=== PATIENT | female | born 1985 | race Caucasian/White ===

== ENCOUNTER → 2018-10-10 08:56 | Outpatient (CLI) | payer OTHER, MEDICAID, SELFPAY ==
[2018-10-13 12:33] LABS: Mitogen-NIL 9.79 IU/mL; NIL 0.05 IU/mL; QuantiFERON TB NEGATIVE (Negative); TB1-NIL < 0.01 IU/mL; TB2-NIL < 0.01 IU/mL
== END ==
PROVIDERS: Visit Provider Family Medicine
DX: Z11.1 Encounter for screening for respiratory tuberculosis (principal)
CPT/HCPCS: 36415; 86480

== ENCOUNTER 2019-08-19 18:11 | Emergency (ER) | payer OTHER, MEDICAID, SELFPAY ==
[2019-08-19 18:16] VITALS: BP 100/69; PULSE 86; RESP 16; TEMP 36.8; O2SAT 91
[2019-08-19] MEDS: ONDANSETRON 4 MG/2 ML INJ IV (19:53)
[2019-08-19] MEDS: SODIUM CHLORIDE 0.9% 1,000 ML 1000 ML IV (19:54)
[2019-08-19 19:56] LABS: Add Manual Diff / Slide Review NO; Basophils Absolute Auto 0 /uL (0-100); Basophils Percent Auto 0.2 % (0-2); Eosinophils Absolute Auto 0 /uL (0-450); Eosinophils Percent Auto 0.4 % (2-4); Hematocrit 40.2 % (36-46); Hemoglobin 13.9 g/dL (12.0-16.0); Lymphocytes Absolute Auto 2300 /uL (1100-4500); Mean Corpuscular HGB Conc 34.5 % (30-36); Mean Corpuscular Hemoglobin 31.6 PG (26-34); Mean Corpuscular Volume 91.5 fL (80-100); Monocytes Absolute Auto 500 /uL (0-900); Monocytes Percent Auto 6.3 % (3-14); Neutrophils Absolute Auto 5200 /uL (1500-7000); Neutrophils Percent Auto 64.1 % (50-75); Platelet Count 275 X10^3/uL (150-400); Red Cell Distribution Width 12.1 % (11.6-14.8); White Blood Cell Count 8.1 X10^3/uL (4.5-11.0)
[2019-08-19 20:07] LABS: Alanine Aminotransferase 34 IU/L (<35); Albumin 4.9 g/dL (3.5-5.0); Albumin Globulin Ratio 1.3 (1.0-2.8); Alkaline Phosphatase 54 U/L (38-126); Aspartate Aminotransferase 29 IU/L (14-36); Bilirubin Total 0.7 mg/dL (0.2-1.3); Blood Urea Nitrogen 10 mg/dL (7-17); Calcium 9.8 mg/dL (8.4-10.2); Carbon Dioxide 22 mmol/L (22-32); Chloride 100 mmol/L (98-107); Estimated Glomerular Filt Rate > 60.0 mL/min (>60); Globulin 3.7 g/dL (1.7-4.1); Glucose 88 mg/dL (70-100); HEMOLYSIS < 15 (0-50); Lipase 92 U/L (23-300); Potassium 3.8 mmol/L (3.4-5.1); Sodium 135 mmol/L (137-145); Total Protein 8.6 g/dL (6.3-8.2)
--- NOTE | 2019-08-19 20:31 | ED_ITS ---
HPI - Nausea/Vomiting/Diarrhea <MAXIM Padilla - Last Filed: 08/19/19 22:15> General Chief complaint: Nausea/Vomiting/Diarrhea Stated complaint: 6 WKS SICKNESS Time Seen by Provider: 08/19/19 19:35 Source: patient Mode of arrival: Ambulatory Limitations: no limitations History of Present Illness HPI Narrative: This is a , currently about 8 week female, nonsmok er, who presents to ED with family with chief complain of nausea and vomiting. Patient reports she had home test with positive results about 2 weeks ago and has been feeling sick with nausea but worse during last a couple of days and was unable to tolerate fluids or solid foods. She had about 3-6 times of emesis per day last couple of days. She reports feeling constantly nauseated. Patient denies abdominal discomfort but mild cramping with excessive vomiting only. Patient denies vaginal bleeding or pelvic discomfort. Patient denies significant weight loss, chest pain, breathing difficulty, lightheadedness, headache. Patient denies urinary symptoms, fever, chills, blood in her emesis or stool. Patient states with her 1st she was some a excessively nauseated during first-trimester but had use Unisom and vitamin B6 which helped her with her symptoms. According to patient, patient's mother had hyperemesis gravidarum. Related Data Previous Rx's Medication Instructions Recorded sertraline [Zoloft] 100 mg PO QDAY #30 tab 06/07/17 ondansetron 4 mg PO TID-QID PRN #14 tab 08/19/19 Allergies Allergy/AdvReac Type Severity Reaction Status Date / Time Penicillins [PENICILLINS] Allergy Unknown Verified 08/19/19 20:02 Review of Systems <MAXIM Padilla - Last Filed: 08/19/19 22:15> Review of Systems Narrative: General: Denies fever, chills, fatigue, malaise, sweats. HEENT: Denies sinus pain, ear pain, sore throat, difficulty swallowing, dizziness. Respiratory: Denies dyspnea, cough, wheezing, hemoptysis, sputum. Cardiovascular: Denies chest pain, palpitations, orthopnea, edema. Gastrointestinal: See HPI : Denies dysuria, frequency, incontinence, hematuria, urinary retention. Musculoskeletal: Denies weakness, joint pain or bony pain. Skin: Denies rash, skin lesions, or other. Neurologic: Denies weakness, headache, numbness, change in speech, confusion, seizures, incoordination. Psychiatric: No concerning psychosocial issues. 12-point review of systems is negative except for those stated above. Patient History <MAXIM Padilla - Last Filed: 08/19/19 22:15> Medical History (Updated 08/19/19 @ 21:36 by MAXIM Padilla) Depression (Acute) Social History Smoking Status: Never smoker Smoking Status: Never smoker alcohol intake frequency: holidays/special occasions only (But not currently during ) Substance Use Type: does not use Exam <MAXIM Padilla - Last Filed: 08/19/19 22:15> Narrative Exam Narrative: GEN: Alert, oriented x 3, well appearing and nourished, and in no acute distress. Head: Normal cephalic, atraumatic. No scalp or temporal tenderness, palpable mass or rash. EYES: Pupils are equal, round, and reactive to light and accommodation. Extraocular muscles are intact bilaterally. There is no subconjunctival hemorrhage, exudate and sclera non-icteric. ENT: Bilateral auditory canals and tympanic membranes clear. Hearing grossly intact. Nose without bleeding, purulent discharge or deviation. Facial sinuses nontender to palpate. Mucous membrane moist, no mucosal lesion. Throat without erythema, tonsillar hypertrophy or exudate. Uvula in midline, airway patent. Neck: Trachea in midline. No JVD, non-tender without lymphadenopathy. No masses or thyroid megaly. Supple, non-tender and no meningeal signs. CARDIAC: Normal regular rate and rhythm without murmurs, gallops, or rubs. No chest wall tenderness. No peripheral edema, cyanosis or pallor. Capillary refill is less than 2 seconds. RESPIRATORY: Lungs are clear to auscultate bilaterally. No cough, wheezes, rales, or rhonchi. No stridor, respiratory distress, increase work of breathing, or accessary muscle used. ABD: Abdomen soft, nontender and non-distended. No guarding or rebound tenderness to palpate. Bowel sounds are normal in all 4 quadrants. There is no palpable masses or organomegaly. EXT: Full painless ROM of all extremities with no loss of sensation, strength, effusion or edema. SKIN: Warm, dry, normal color for patient. No erythema, lesions or rash over visible areas. BACK: Nontender without deformity or crepitance. No flank tenderness. NEUROLOGICAL: Alert and oriented to place, time and person. Sensation and motor function intact bilaterally. No facial droops, dysphasia. PSYCHIATRIC: Good judgement and reason, without hallucinations, abnormal affect or abnormal behaviors during the examination. Patient is not suicidal. Initial Vital Signs Initial Vital Signs: Vital Signs Temperature 98.2 F 08/19/19 18:16 Pulse Rate 86 08/19/19 18:16 Respiratory Rate 16 08/19/19 18:16 Blood Pressure 100/69 08/19/19 18:16 Pulse Oximetry 91 08/19/19 18:16 <Ayo Perrin DO - Last Filed: 08/19/19 22:20> Initial Vital Signs Initial Vital Signs: Vital Signs Temperature 98.2 F 08/19/19 18:16 Pulse Rate 86 08/19/19 18:16 Respiratory Rate 16 08/19/19 18:16 Blood Pressure 100/69 08/19/19 18:16 Pulse Oximetry 91 08/19/19 18:16 Scores <MAXIM Padilla - Last Filed: 08/19/19 22:15> GCS [place] coma scale eye opening: Spontaneous [place] coma scale verbal response: Orientated [place] coma scale motor response: Obey commands [place] coma scale total score: 15 Course <MAXIM Padilla - Last Filed: 08/19/19 22:15> Orders Ordered: ED Orders 08/19/19 19:50 Complete Blood Count AUTO DIFF Stat Comprehensive Metabolic Panel Stat HCG Quantitative /Beta subunit Stat Lipase Stat 08/19/19 21:45 Urinalysis and Microscopic Stat Discontinued Medications Sodium Chloride (Normal Saline 0.9%) 1,000 mls @ 1,000 mls/hr IV BOLUS ONE Stop: 08/19/19 20:35 Last Infusion: 08/19/19 21:15 Dose: 0 mls/hr Documented by: Admin: 08/19/19 19:54 Dose: 1,000 mls/hr Documented by: DANGELO Ondansetron HCl (Zofran) 4 mg IV NOW ONE Stop: 08/19/19 19:36 Last Admin: 08/19/19 19:53 Dose: 4 mg Documented by: DANGELO Ondansetron HCl (Zofran Odt Prepack) 1 bottle MISC SEEINSTR ONE Stop: 08/19/19 21:31 Last Admin: 08/19/19 21:41 Dose: 1 bottle Documented by: DANGELO Vital Signs Vital signs: Vital Signs - 8 hr 08/19/19 18:16 08/19/19 21:52 Temperature 98.2 F Pulse Rate 86 87 Respiratory Rate 16 Blood Pressure 100/69 Blood Pressure [Right Arm] 94/62 Pulse Oximetry 91 <Ayo Perrin DO - Last Filed: 08/19/19 22:20> Orders Ordered: ED Orders 08/19/19 19:50 Complete Blood Count AUTO DIFF Stat Comprehensive Metabolic Panel Stat HCG Quantitative /Beta subunit Stat Lipase Stat 08/19/19 21:45 Urinalysis and Microscopic Stat Discontinued Medications Sodium Chloride (Normal Saline 0.9%) 1,000 mls @ 1,000 mls/hr IV BOLUS ONE Stop: 08/19/19 20:35 Last Infusion: 08/19/19 21:15 Dose: 0 mls/hr Documented by: Admin: 08/19/19 19:54 Dose: 1,000 mls/hr Documented by: DANGELO Ondansetron HCl (Zofran) 4 mg IV NOW ONE Stop: 08/19/19 19:36 Last Admin: 08/19/19 19:53 Dose: 4 mg Documented by: DANGELO Ondansetron HCl (Zofran Odt Prepack) 1 bottle MISC SEEINSTR ONE Stop: 08/19/19 21:31 Last Admin: 08/19/19 21:41 Dose: 1 bottle Documented by: DANGELO Vital Signs Vital signs: Vital Signs - 8 hr 08/19/19 18:16 08/19/19 21:52 Temperature 98.2 F Pulse Rate 86 87 Respiratory Rate 16 Blood Pressure 100/69 Blood Pressure [Right Arm] 94/62 Pulse Oximetry 91 MDM - Nausea/Vomiting/Diarrhea <Jovanni MAXIM Lovell - Last Filed: 08/19/19 22:15> Differential Diagnosis Differential diagnosis: Likely gastroenteritis and other (morning sickness, hyperemesis gravidarum) Medical Records Attestation: I reviewed the patient's medical records. Lab Data Attestation: I reviewed the patient's lab results. Result diagrams: 08/19/19 19:50 08/19/19 19:50 Labs: Lab Results 08/19/19 08/19/19 08/19/19 Range/Units 19:50 19:50 21:45 WBC 8.1 (4.5-11.0) X10^3/uL RBC 4.40 (4.0-5.2) X10^6/uL Hgb 13.9 (12.0-16.0) g/dL Hct 40.2 (36-46) % MCV 91.5 (80-100) fL MCH 31.6 (26-34) PG MCHC 34.5 (30-36) % RDW 12.1 (11.6-14.8) % Plt Count 275 (150-400) X10^3/uL Neut % (Auto) 64.1 (50-75) % Lymph % (Auto) 29.0 (25-40) % [place] % (Auto) 6.3 (3-14) % Eos % (Auto) 0.4 L (2-4) % Baso % (Auto) 0.2 (0-2) % Neut # (Auto) 5200 (2344-2381) /uL Lymph # (Auto) 2300 (9498-1354) /uL [place] # (Auto) 500 (0-900) /uL Eos # (Auto) 0 (0-450) /uL Baso # (Auto) 0 (0-100) /uL Sodium 135 L (137-145) mmol/L Potassium 3.8 (3.4-5.1) mmol/L Chloride 100 (98-107) mmol/L Carbon Dioxide 22 (22-32) mmol/L BUN 10 (7-17) mg/dL Creatinine 0.50 L (0.52-1.04) mg/dL Estimated GFR > 60.0 (>60) mL/min BUN/Creatinine Ratio 20.0 (6-22) Glucose 88 (70-100) mg/dL Calcium 9.8 (8.4-10.2) mg/dL Total Bilirubin 0.7 (0.2-1.3) mg/dL AST 29 (14-36) IU/L ALT 34 (<35) IU/L Alkaline Phosphatase 54 (38-126) U/L Total Protein 8.6 H (6.3-8.2) g/dL Albumin 4.9 (3.5-5.0) g/dL Globulin 3.7 (1.7-4.1) g/dL Albumin/Globulin Ratio 1.3 (1.0-2.8) Lipase 92 (23-300) U/L HCG, Quant 14922 mIU/mL Urine Color Yellow Urine Appearance Sl cloudy Urine pH 6.5 (4.5-8.0) Ur Specific Red [place] 1.025 (1.000-1.035) Urine Protein 1+ H (Negative) Urine Glucose (UA) Negative (Negative) g/dL Urine Ketones 3+ H (NEGATIVE) Urine Occult Blood Trace-lysed (Negative) Urine Nitrate Negative (Negative) Urine Bilirubin Negative (NEGATIVE) Urine Urobilinogen 1.0 (0.2) E.U./dL Ur Leukocyte Esterase 1+ H (NEGATIVE) Urine RBC 0-1/hpf (0-5/HPF) Urine WBC 1-5/hpf (0-5/HPF) Ur Squamous Epith Cells 5-10 /hpf H (0-5/HPF) Urine Bacteria Many (>30) H (None) Urine Mucus 2+ H (Negative) Ur Culture Indicated? Cult not indicated MDM Narrative Medical decision making narrative: This is a with LMP 06/23/2019 and about 8 week female presents to ED with nausea and vomiting for 2 weeks with worsening symptoms for last 2 days. Today's lab test for CBC, lipase and chemistry were unremarkable. Normal BUN and BUN creatinine ratio today. Patient did not endorses abdominal discomfort, vaginal bleeding, pelvic discomfort. Patient was not symptomatic for chest pain, breathing difficulty, dizziness. Patient did not have complication during 1st except moderate nausea and vomiting which resolved after 1st trimester. Patient was hydrated with normal saline 1 L and medicated with Zofran which helped her symptoms. She was able to tolerate fluids and ice chips prior discharged to home. Patient was referred to ED to rule out molar . Patient's hCG is within normal limits for 8 weeks [id number]. Patient had not had 1st OB appointment as of yet and is planning to follow-up with Dr. Thomas office for her care. UA showed 3+ ketones which is consistent with patient's HPI and 1+ leuk esterase, urine squamous epithelia cells and bacteria along mucus. Patient is was not treated with antibiotic medication at this time but urine culture has been ordered. Patient was informed that she will receive phone call if antibiotic medication treatment is needed. Patient verbalized understanding and agrees with treatment plan after reviewing return precautions. <Ayo Perrin, - Last Filed: 08/19/19 22:20> Lab Data Labs: Lab Results 08/19/19 08/19/19 08/19/19 Range/Units 19:50 19:50 21:45 WBC 8.1 (4.5-11.0) X10^3/uL RBC 4.40 (4.0-5.2) X10^6/uL Hgb 13.9 (12.0-16.0) g/dL Hct 40.2 (36-46) % MCV 91.5 (80-100) fL MCH 31.6 (26-34) PG MCHC 34.5 (30-36) % RDW 12.1 (11.6-14.8) % Plt Count 275 (150-400) X10^3/uL Neut % (Auto) 64.1 (50-75) % Lymph % (Auto) 29.0 (25-40) % [place] % (Auto) 6.3 (3-14) % Eos % (Auto) 0.4 L (2-4) % Baso % (Auto) 0.2 (0-2) % Neut # (Auto) 5200 (8124-3111) /uL Lymph # (Auto) 2300 (0693-8398) /uL [place] # (Auto) 500 (0-900) /uL Eos # (Auto) 0 (0-450) /uL Baso # (Auto) 0 (0-100) /uL Sodium 135 L (137-145) mmol/L Potassium 3.8 (3.4-5.1) mmol/L Chloride 100 (98-107) mmol/L Carbon Dioxide 22 (22-32) mmol/L BUN 10 (7-17) mg/dL Creatinine 0.50 L (0.52-1.04) mg/dL Estimated GFR > 60.0 (>60) mL/min BUN/Creatinine Ratio 20.0 (6-22) Glucose 88 (70-100) mg/dL Calcium 9.8 (8.4-10.2) mg/dL Total Bilirubin 0.7 (0.2-1.3) mg/dL AST 29 (14-36) IU/L ALT 34 (<35) IU/L Alkaline Phosphatase 54 (38-126) U/L Total Protein 8.6 H (6.3-8.2) g/dL Albumin 4.9 (3.5-5.0) g/dL Globulin 3.7 (1.7-4.1) g/dL Albumin/Globulin Ratio 1.3 (1.0-2.8) Lipase 92 (23-300) U/L HCG, Quant 13285 mIU/mL Urine Color Yellow Urine Appearance Sl cloudy Urine pH 6.5 (4.5-8.0) Ur Specific Red [place] 1.025 (1.000-1.035) Urine Protein 1+ H (Negative) Urine Glucose (UA) Negative (Negative) g/dL Urine Ketones 3+ H (NEGATIVE) Urine Occult Blood Trace-lysed (Negative) Urine Nitrate Negative (Negative) Urine Bilirubin Negative (NEGATIVE) Urine Urobilinogen 1.0 (0.2) E.U./dL Ur Leukocyte Esterase 1+ H (NEGATIVE) Urine RBC 0-1/hpf (0-5/HPF) Urine WBC 1-5/hpf (0-5/HPF) Ur Squamous Epith Cells 5-10 /hpf H (0-5/HPF) Urine Bacteria Many (>30) H (None) Urine Mucus 2+ H (Negative) Ur Culture Indicated? Cult not indicated Discharge Plan Departure Patient Disposition: Home Clinical Impression: Nausea and vomiting during prior to 22 weeks gestation Discharge Date/Time: 08/19/19 22:19 Instructions: DI for Hyperemesis Gravidarum Activity Restrictions/Additional Instructions: You have been diagnosed with [nausea and vomiting during first-trimester . Complete blood count and chemistry appears to be unremarkable. 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 Urine test does not show obvious infection and it is pending for culture. You're receive a phone call if you need antibiotic medication treatment from us. Pelvic ultrasound test was deferred today since he did not have any vaginal bleeding, pelvic pain, normal HCG test level. You were hydrated with normal saline 1 L and medicated with Zofran which improved her symptoms. You're able to tolerate ice chips and small sips of fluids before discharged to home.]. What to do: *Take your medications as directed. You were provided prepack on Zofran tonight. You can use this medication 3 to 4 times a day as needed for nausea and vomiting. When you're nausea improves, you can hydrate with ice chips, clear liquids and advanced it to crackers and bland diet. *Follow up with your primary care provider in 2-3 days, call for an appointment. I have included Dr. Delgado office contact number in the discharge instruction. Let them know you were seen in the ED and that we asked you to be seen in follow up. *Return to ED if you have any new, worsening, or concerning symptoms, such as [chest pain, breathing difficulty, unable to tolerate fluids, abdominal pain, vaginal bleeding, feeling like fainting, or any acute concerns]. Prescriptions: New ondansetron 4 mg tablet,disintegrating 4 mg PO TID-QID PRN (Reason: nausea and vomiting) Qty: 14 RF: 0 No Action sertraline [Zoloft] 100 MG tablet 100 mg PO QDAY Qty: 30 RF: 1 Referrals: Ayo Lal [Non-Staff] - Gagan Thomas MD [Primary Care Provider] - <Ayo Perrin, DO - Last Filed: 08/19/19 22:20> Sign Out Provider Sign Out Attestation: Dr Perrin Co-Sign Statement: I was available for consultation during this patient's emergency department visit. This chart is signed by myself for administrative purposes only. I did not have direct con tact with this patient during this visit. They were seen independently by the APC.
[2019-08-19 20:48] LABS: HCG Quantitative /Beta subunit 52712 mIU/mL
[2019-08-19] MEDS: ONDANSETRON 4 MG ODT PREPACK 1 BOTTLE MISC (21:41)
[2019-08-19 21:52] VITALS: BP 94/62; PULSE 87
[2019-08-19 21:54] LABS: Appearance Urine UA SL CLOUDY; Bilirubin Urine UA NEGATIVE (NEGATIVE); Color Urine UA YELLOW; Glucose Urine UA NEGATIVE (Negative); Ketones Urine UA 3+ (NEGATIVE); Leukocyte Esterase Urine UA 1+ (NEGATIVE); Nitrite Urine UA NEGATIVE (Negative); Occult Blood Urine UA TRACE-LYSED (Negative); Protein Urine UA 1+ (Negative); Specific Gravity Urine UA 1.025 (1.000-1.035)
[2019-08-19 22:08] LABS: pH Urine UA 6.5 (4.5-8.0)
[2019-08-19 22:09] LABS: RBC Urine 0-1/HPF (0-5/HPF)
[2019-08-19 22:10] LABS: Bacteria Urine Many (>30); Culture Indicated Urine Cult Not Indicated; Mucus Urine 2+ (Negative); Squamous Epithelial Cell Urine 5-10 /HPF (0-5/HPF); WBC Urine 1-5/HPF (0-5/HPF)
== END 2019-08-19 22:19 | disposition home or self-care (01) ==
PROVIDERS: Emergency Provider Nurse Practitioner Family
DX: O21.9 Vomiting of pregnancy, unspecified (principal); Z3A.08 8 weeks gestation of pregnancy
CPT/HCPCS: 36415; 80053; 81001; 83690; 84702; 85025; 96361; 96374; 99284; J2405

== ENCOUNTER → 2019-08-29 16:13 | Outpatient (CLI) | payer OTHER, MEDICAID, SELFPAY ==
[2019-08-29 17:15] LABS: Appearance Urine UA CLEAR; Bilirubin Urine UA NEGATIVE (NEGATIVE); Color Urine UA YELLOW; Glucose Urine UA NEGATIVE (Negative); Ketones Urine UA NEGATIVE (NEGATIVE); Leukocyte Esterase Urine UA 1+ (NEGATIVE); Nitrite Urine UA NEGATIVE (Negative); Occult Blood Urine UA NEGATIVE (Negative); Protein Urine UA TRACE (Negative); Urobilinogen Urine UA 0.2 E.U./dL (0.2)
[2019-08-29 17:16] LABS: Add Manual Diff / Slide Review NO; Basophils Absolute Auto 0 /uL (0-100); Basophils Percent Auto 0.2 % (0-2); Eosinophils Absolute Auto 100 /uL (0-450); Eosinophils Percent Auto 1.1 % (2-4); Hemoglobin 12.3 g/dL (12.0-16.0); Lymphocytes Absolute Auto 2200 /uL (1100-4500); Lymphocytes Percent Auto 34.8 % (25-40); Mean Corpuscular HGB Conc 34.1 % (30-36); Mean Corpuscular Hemoglobin 31.4 PG (26-34); Monocytes Absolute Auto 400 /uL (0-900); Monocytes Percent Auto 6.5 % (3-14); Neutrophils Absolute Auto 3600 /uL (1500-7000); Neutrophils Percent Auto 57.4 % (50-75); Platelet Count 233 X10^3/uL (150-400); Red Blood Cell Count 3.91 X10^6/uL (4.0-5.2); Red Cell Distribution Width 12.3 % (11.6-14.8); White Blood Cell Count 6.2 X10^3/uL (4.5-11.0)
[2019-08-29 17:18] LABS: pH Urine UA 6.5 (4.5-8.0)
[2019-08-29 17:19] LABS: RBC Urine None Seen (0-5/HPF)
[2019-08-29 17:23] LABS: Bacteria Urine Few (2-10); Mucus Urine 1+ (Negative); Squamous Epithelial Cell Urine 5-10 /HPF (0-5/HPF); WBC Urine 1-5/HPF (0-5/HPF)
[2019-08-29 17:25] LABS: Hemoglobin A1C% w Est Avg Glu 4.9 % (4.0-6.0)
[2019-08-29 17:34] LABS: Glucose 90 mg/dL (70-100)
[2019-08-29 18:04] LABS: Hepatitis B Surface Antigen NEGATIVE s/c (NEGATIVE); Rubella Antibody IgG 87.3 IU/mL (>15)
[2019-08-29 18:22] LABS: HIV 1 & 2 Ab/Ag 4th Gen Combo NEGATIVE (NEGATIVE); Hep C Virus Ab w/Reflex Quant NEGATIVE s/c (NEGATIVE)
[2019-09-01 18:17] LABS: RPR Screen Nonreactive (Nonreactive)
== END ==
DX: Z34.81 Encounter for supervision of other normal pregnancy, first trimester (principal)
CPT/HCPCS: 36415; 80055; 81003; 81015; 82947; 83036; 86787; 86803; 86850; 86900; 86901; 87086; 87389

== ENCOUNTER 2019-09-12 10:28 | Emergency (ER) | payer OTHER, MEDICAID, SELFPAY ==
[2019-09-12 10:35] VITALS: BP 99/62; PULSE 78; RESP 15; TEMP 36.8; O2SAT 99; BMI 23.2
--- NOTE | 2019-09-12 10:47 | ED.NAVMDI ---
HPI - Nausea/Vomiting/Diarrhea General Chief complaint: Nausea/Vomiting/Diarrhea Stated complaint: nausea,vomiting,sent by doc for iv fluids Time Seen by Provider: 09/12/19 10:47 Source: patient Mode of arrival: Ambulatory Limitations: no limitations History of Present Illness HPI Narrative: 33F nonsmoker without significant medical history is at 10 weeks presents at the request of her OB physician due to ongoing nausea, vomiting and dry heaving despite access to Zofran at home. She denies any significant dizziness, weakness or lightheadedness but does admit to feeling generally fatigued. She was here under similar circumstances about 1 month ago and received an IV with rapid improvement. She has had no fever chills, denies any new medications or dietary change. MD complaint: nausea and vomiting Onset (ago): day(s) Description of Vomiting: food contents Description of Diarrhea: none Location of pain: diffuse Radiation: diffuse Severity: moderate Quality: cramping Relieving factors: none Exacerbating factors: none Context: foreign travel Associated symptoms: denies other symptoms Related Data Home Medications Medication Instructions Recorded Confirmed doxylamine succinate 25 mg tablet 25 mg PO BEDTIME PRN 08/27/19 09/12/19 prenat.vits,yaima,bbe-irjf-bnvlh 1 tab PO DAILY 08/27/19 09/12/19 pyridoxine (vitamin B6) 25 mg 25 mg PO DAILY 08/27/19 09/12/19 tablet sertraline 50 mg tablet 50 mg PO DAILY 08/27/19 08/29/19 Previous Rx's Medication Instructions Recorded ondansetron 4 mg disintegrating 4 mg PO TID-QID PRN #30 tab 09/03/19 tablet Allergies Allergy/AdvReac Type Severity Reaction Status Date / Time Penicillins [PENICILLINS] Allergy Mild Rash as a Verified 09/12/19 11:19 child Review of Systems Constitutional Constitutional: Denies chills, Denies fatigue, Denies fever(s), Denies frequent falls, Denies lethargy and Denies weakness Eyes Eyes: Denies change in vision, Denies eye discharge, Denies irritation and Denies loss of vision ENT Ears, Nose, Mouth, and Throat: Denies change in voice, Denies dizziness, Denies neck pain, Denies sore throat and Denies throat swelling Cardiovascular Cardiovascular: Denies chest pain, Denies irregular heart rhythm, Denies lightheadedness, Denies palpitations, Denies dyspnea, Denies dyspnea on exertion and Denies orthopnea Respiratory Respiratory: Denies cough, Denies dyspnea, Denies dyspnea on exertion and Denies wheezing Gastrointestinal Gastrointestinal: Reports abdominal pain, Denies change in bowel habits, Denies diarrhea, Reports nausea and Reports vomiting Genitourinary Genitourinary: Denies hematuria, Denies flank pain, Denies urinary incontinence and Denies urinary urgency Musculoskeletal Musculoskeletal: Denies back pain, Denies muscle weakness, Denies neck pain, Denies numbness and Denies tingling Integumentary/Breasts Skin/Breast: Denies pruritus, Denies erythema, Denies rash and Denies wounds Neurologic Neurologic: Denies behavioral changes, Denies confusion, Denies dizziness, Denies frequent falls, Denies loss of vision, Denies numbness, Denies tingling and Denies weakness Psychiatric Psychiatric: Denies anxiety, Denies behavioral changes, Denies confusion, Denies depression, Denies homicidal ideation and Denies suicidal ideation Endocrine Endocrine: Denies fatigue, Denies flushing and Denies palpitations Hematologic/Lymphatic Hematologic/Lymphatic: Denies easy bruising Allergic/Immunologic Allergic/Immunologic: Denies urticaria, Denies throat swelling and Denies wheezing Patient History Medical History (Updated 09/12/19 @ 12:26 by Masood Fraser DO) Abnormal Papanicolaou smear of cervix with positive human papilloma virus (HPV) test (Acute ~2014) Anxiety (Acute) Depression (Acute) (spontaneous vaginal delivery) (Acute ~2017) Surgical History (Updated 08/27/19 @ 15:50 by Lizzie Suarez RN) H/O LEEP (Acute ~2014) Family History (Updated 08/27/19 @ 15:51 by Lizzie Suarez RN) Father Depression Alcoholic Anxiety Throat cancer Cancer Heavy smoker Family/Other OCD (obsessive compulsive disorder) Grandfather Diabetes mellitus Stroke Grandmother Non-Hodgkin lymphoma Grandfather ALS (amyotrophic lateral sclerosis) Grandmother Pneumonia Family/Other Hypertension Heart disease Social History marital status: unmarried,living together household members: children pets and animals: Yes (dogs) education level: college (BA Degree) occupational status: employed (Pre-school Ed) current occupational exposures/hazards: No special mony needs: No Smoking Status: Never smoker second hand exposure: No alcohol intake: former (non- socially) substance use type: does not use Smoking Status: Never smoker alcohol intake frequency: holidays/special occasions only (But not currently during ) Substance Use Type: does not use Exam Narrative Exam Narrative: GENERAL: [33] year old patient appears stated age. Well-nourished, well-developed patient, in mild distress. HEAD: Atraumatic. Normocephalic. EYES: Pupils equal round and reactive. Extraocular motions intact. No scleral icterus. No injection or drainage. ENT: Nose without bleeding, purulent drainage. Throat without erythema, tonsillar hypertrophy or exudate. Airway patent. NECK: Trachea midline. Non tender CARDIOVASCULAR: Regular rate and rhythm without murmurs, gallops, or rubs. RESPIRATORY: Clear to auscultation. Breath sounds equal bilaterally. No wheezes, rales, or rhonchi. GASTROINTESTINAL: Abdomen soft, non-tender, nondistended. EXTREMITIES: No edema or joint tenderness. BACK: Nontender without deformity or crepitance. No flank tenderness. NEURO: AOx3. SKIN: No rash or erythema of visible areas Initial Vital Signs Initial Vital Signs: Vital Signs Temperature 98.3 F 09/12/19 10:35 Pulse Rate 78 09/12/19 10:35 Respiratory Rate 15 09/12/19 10:35 Blood Pressure 99/62 09/12/19 10:35 Pulse Oximetry 99 09/12/19 10:35 Course Course Course Narrative: Patient feeling much better after the above-stated therapies. She is no longer dizzy upon standing and states that her normal blood pressure tends to be at about 90. Labs are very reassuring. Patient has been given return precautions and is at questions answered to her apparent satisfaction Orders Ordered: ED Orders 09/12/19 11:23 Basic Metabolic Panel Stat Complete Blood Count AUTO DIFF Stat Ketones (Beta-Hydroxybutyrate) Stat Discontinued Medications Sodium Chloride (Normal Saline 0.9%) 1,000 mls @ 1,000 mls/hr IV BOLUS ONE Stop: 09/12/19 11:47 Last Infusion: 09/12/19 12:29 Dose: 0 mls/hr Documented by: Admin: 09/12/19 11:31 Dose: 1,000 mls/hr Documented by: SCANWINSOMEO Sodium Chloride (Normal Saline 0.9%) 1,000 mls @ 1,000 mls/hr IV BOLUS ONE Stop: 09/12/19 13:31 Last Infusion: 09/12/19 13:41 Dose: 0 mls/hr Documented by: Admin: 09/12/19 12:35 Dose: 1,000 mls/hr Documented by: KRISTEN Ondansetron HCl (Zofran) 4 mg IV Q4HR PRN PRN Reason: Nausea And Vomiting Vital Signs Vital signs: Vital Signs - 8 hr 09/12/19 12:29 09/12/19 13:41 Pulse Rate 63 Pulse Rate [Orthostatic Lying] 75 Pulse Rate [Orthostatic Sitting] 74 Pulse Rate [Orthostatic Standing] 77 Respiratory Rate 16 Blood Pressure [Left Arm] 84/52 L Blood Pressure [Orthostatic Lying] 82/52 L Blood Pressure [Orthostatic Sitting] 80/48 L Blood Pressure [Orthostatic Standing] 91/51 L Pulse Oximetry 100 MDM - Nausea/Vomiting/Diarrhea Lab Data Result diagrams: 09/12/19 11:23 09/12/19 11:23 Labs: Lab Results 09/12/19 09/12/19 Range/Units 11:23 11:23 WBC 4.9 (4.5-11.0) X10^3/uL RBC 3.85 L (4.0-5.2) X10^6/uL Hgb 12.2 (12.0-16.0) g/dL Hct 34.9 L (36-46) % MCV 90.5 (80-100) fL MCH 31.6 (26-34) PG MCHC 34.9 (30-36) % RDW 12.5 (11.6-14.8) % Plt Count 192 (150-400) X10^3/uL Neut % (Auto) 55.8 (50-75) % Lymph % (Auto) 35.4 (25-40) % [place] % (Auto) 7.5 (3-14) % Eos % (Auto) 0.9 L (2-4) % Baso % (Auto) 0.4 (0-2) % Neut # (Auto) 2700 (9562-7251) /uL Lymph # (Auto) 1700 (0440-2975) /uL [place] # (Auto) 400 (0-900) /uL Eos # (Auto) 0 (0-450) /uL Baso # (Auto) 0 (0-100) /uL Sodium 136 L (137-145) mmol/L Potassium 3.9 (3.4-5.1) mmol/L Chloride 104 (98-107) mmol/L Carbon Dioxide 23 (22-32) mmol/L BUN 7 (7-17) mg/dL Creatinine 0.50 L (0.52-1.04) mg/dL Estimated GFR > 60.0 (>60) mL/min BUN/Creatinine Ratio 14.0 (6-22) Glucose 83 (70-100) mg/dL Calcium 9.1 (8.4-10.2) mg/dL Ketones 0.18 (<0.27) mmol/L Discharge Plan Departure Patient Disposition: Home Clinical Impression: Nausea and vomiting during Discharge Date/Time: 09/12/19 14:17 Instructions: DI for Dehydration -- Adult, DI for Vomiting -- Adult Activity Restrictions/Additional Instructions: 1. Drink plenty of fluids with frequent small sips. 2. For the next 24 hours a clear liquid diet is advised. After that please employ a brat diet which would include bananas, rice, apples, toast. 3. Please take medications as directed. 4. Please follow-up with your doctor in the next 1-2 days. Call the office for an appointment. 5. Please return to the emergency Department for any worsening or persistent symptoms, such as increasing pain or fever. Prescriptions: No Action ondansetron 4 mg tablet,disintegrating 4 mg PO TID-QID PRN (Reason: nausea and vomiting) Qty: 30 RF: 3 prenat.vits,yaima,[id number] Tablet 1 tab PO DAILY RF: 0 sertraline 50 mg tablet 50 mg PO DAILY RF: 0 Unisom (doxylamine) 25 mg tablet 25 mg PO BEDTIME PRN (Reason: Insomnia) RF: 0 pyridoxine (vitamin B6) 25 mg tablet 25 mg PO DAILY RF: 0 Referrals: Gagan Thomas MD [Primary Care Provider] -
[2019-09-12 11:29] LABS: Add Manual Diff / Slide Review NO; Basophils Absolute Auto 0 /uL (0-100); Basophils Percent Auto 0.4 % (0-2); Eosinophils Absolute Auto 0 /uL (0-450); Eosinophils Percent Auto 0.9 % (2-4); Hematocrit 34.9 % (36-46); Hemoglobin 12.2 g/dL (12.0-16.0); Lymphocytes Absolute Auto 1700 /uL (1100-4500); Lymphocytes Percent Auto 35.4 % (25-40); Mean Corpuscular HGB Conc 34.9 % (30-36); Mean Corpuscular Hemoglobin 31.6 PG (26-34); Mean Corpuscular Volume 90.5 fL (80-100); Monocytes Absolute Auto 400 /uL (0-900); Monocytes Percent Auto 7.5 % (3-14); Neutrophils Absolute Auto 2700 /uL (1500-7000); Neutrophils Percent Auto 55.8 % (50-75); Platelet Count 192 X10^3/uL (150-400); Red Blood Cell Count 3.85 X10^6/uL (4.0-5.2); Red Cell Distribution Width 12.5 % (11.6-14.8); White Blood Cell Count 4.9 X10^3/uL (4.5-11.0)
[2019-09-12] MEDS: SODIUM CHLORIDE 0.9% 1,000 ML 1000 ML IV ×2 (11:31→12:35)
[2019-09-12 11:44] LABS: Blood Urea Nitrogen 7 mg/dL (7-17); Calcium 9.1 mg/dL (8.4-10.2); Carbon Dioxide 23 mmol/L (22-32); Chloride 104 mmol/L (98-107); Estimated Glomerular Filt Rate > 60.0 mL/min (>60); Glucose 83 mg/dL (70-100); HEMOLYSIS < 15 (0-50); Potassium 3.9 mmol/L (3.4-5.1); Sodium 136 mmol/L (137-145)
[2019-09-12 11:46] LABS: Ketones (Beta-Hydroxybutyrate) 0.18 mmol/L (<0.27)
[2019-09-12 12:29] VITALS: BP 84/52; PULSE 63; RESP 16; O2SAT 100
[2019-09-12 13:41] VITALS: BP 80/48; BP 82/52; BP 91/51; PULSE 74; PULSE 75; PULSE 77
--- NOTE | 2019-09-12 13:42 | PC.NURSE ---
Pt denies any dizziness and states that her bp is normall aroun 90
== END 2019-09-12 14:17 | disposition home or self-care (01) ==
PROVIDERS: Emergency Provider Emergency Medicine
DX: O21.9 Vomiting of pregnancy, unspecified (principal); Z3A.10 10 weeks gestation of pregnancy
CPT/HCPCS: 36415; 80048; 82009; 85025; 96360; 96361; 99284

== ENCOUNTER → 2019-09-17 10:26 | Oncology outpatient (ONC) | payer OTHER, MEDICAID, SELFPAY ==
[2019-09-13] MEDS: DEXTROSE 5%-LACTATED RINGERS 1,000 ML 1000 ML IV ×2 (10:43→12:48)
[2019-09-13 10:49] VITALS: BP 90/52; PULSE 80; RESP 20; TEMP 36.5; O2SAT 99
--- NOTE | 2019-09-13 10:52 | PC.NURSE ---
Pt arrived, IV placed in Right a/c. Pt Infusion begun. S.O. with Pt.
[2019-09-13] MEDS: ONDANSETRON 8 MG in SODIUM CHLORIDE 0.9% 50 ML 216 ML IV (11:23)
[2019-09-17 10:53] VITALS: BP 92/56; PULSE 83; RESP 15; O2SAT 98
[2019-09-17] MEDS: DEXTROSE 5%-LACTATED RINGERS 1,000 ML 1000 ML IV ×2 (11:21→12:24)
== END ==
LOC: ONC 10:27
DX: O09.521 Supervision of elderly multigravida, first trimester (principal); O21.0 Mild hyperemesis gravidarum; Z3A.10 10 weeks gestation of pregnancy
CPT/HCPCS: 96360; 96361; 96365; J2405; J7121

== ENCOUNTER → 2019-09-24 11:52 | Outpatient (CLI) | payer OTHER, MEDICAID, SELFPAY ==
[2019-09-26 13:08] LABS: Sequential Screen 1st Trimeste FINAL PENDING
== END ==
DX: Z36.0 Encounter for antenatal screening for chromosomal anomalies (principal); Z3A.12 12 weeks gestation of pregnancy
CPT/HCPCS: 36415; 84163; 84702

== ENCOUNTER → 2019-10-25 10:52 | Outpatient (CLI) | payer OTHER, MEDICAID, SELFPAY ==
[2019-11-11 10:04] LABS: Sequential Screen 2nd Trimeste SCREEN NEGATIVE
== END ==
PROVIDERS: PCP Family Medicine
DX: O09.522 Supervision of elderly multigravida, second trimester (principal); Z36.0 Encounter for antenatal screening for chromosomal anomalies
CPT/HCPCS: 36415; 81420; 82105; 82677; 84163; 84702; 86336

== ENCOUNTER → 2019-12-27 11:00 | Outpatient (CLI) | payer OTHER, MEDICAID, SELFPAY ==
[2019-12-27 12:34] LABS: Hematocrit 28.1 % (36-46); Hemoglobin 9.9 g/dL (12.0-16.0)
[2019-12-27 13:03] LABS: GTT (PREG) 1 Hour PP 50gm Dose 138 mg/dL (76-139)
== END ==
PROVIDERS: PCP Family Medicine
DX: Z34.82 Encounter for supervision of other normal pregnancy, second trimester (principal); Z3A.25 25 weeks gestation of pregnancy
CPT/HCPCS: 82950; 85014; 85018

== ENCOUNTER → 2020-03-09 11:15 | Outpatient (CLI) | payer OTHER, MEDICAID, SELFPAY ==
[2020-03-10 14:32] LABS: Strep Grp B PCR NEG for Grp B Strep
== END ==
PROVIDERS: PCP Family Medicine; Visit Provider Obstetrics & Gynecology
DX: Z34.83 Encounter for supervision of other normal pregnancy, third trimester (principal); Z3A.36 36 weeks gestation of pregnancy
CPT/HCPCS: 87653

== ENCOUNTER → 2020-03-31 14:42 | Outpatient (CLI) | payer OTHER, MEDICAID, SELFPAY ==
[2020-04-01 07:56] LABS: COVID19 Sendout Not Detected (Not Detect)
== END ==
PROVIDERS: PCP Family Medicine; Visit Provider Nurse Practitioner
DX: Z11.59 Encounter for screening for other viral diseases (principal)
CPT/HCPCS: 87635

== ENCOUNTER 2020-04-04 07:29 | Inpatient (IN) | payer OTHER, MEDICAID, SELFPAY ==
[2020-04-04 08:47] LABS: Add Manual Diff / Slide Review NO; Basophils Absolute Auto 0 /uL (0-100); Basophils Percent Auto 0.2 % (0-2); Eosinophils Absolute Auto 100 /uL (0-450); Eosinophils Percent Auto 0.9 % (2-4); Hematocrit 34.3 % (36-46); Hemoglobin 11.8 g/dL (12.0-16.0); Lymphocytes Absolute Auto 1600 /uL (1100-4500); Lymphocytes Percent Auto 21.6 % (25-40); Mean Corpuscular HGB Conc 34.3 % (30-36); Mean Corpuscular Hemoglobin 32.4 PG (26-34); Mean Corpuscular Volume 94.6 fL (80-100); Monocytes Absolute Auto 400 /uL (0-900); Monocytes Percent Auto 5.2 % (3-14); Neutrophils Absolute Auto 5300 /uL (1500-7000); Neutrophils Percent Auto 72.1 % (50-75); Platelet Count 186 X10^3/uL (150-400); Red Blood Cell Count 3.62 X10^6/uL (4.0-5.2); Red Cell Distribution Width 13.5 % (11.6-14.8); White Blood Cell Count 7.4 X10^3/uL (4.5-11.0)
[2020-04-04] MEDS: LACTATED RINGERS 1,000 ML 100 ML IV ×3 (08:50→12:26)
--- NOTE | 2020-04-04 09:38 | PM.OBHP.1 ---
OB HPI Date/Time Date of admission: 04/04/20 Date Patient Seen: 04/04/20 Time Patient Seen: 08:45 History of Present Condition Chief complaint: Observation : 3 Para: 1 Estimated Date of Delivery: 04/06/20 Estimated Gestational Age (weeks): 39 Narrative: Leia Storm Meng is a 34 year old 011 at 39 weeks 5 days presenting in active labor after SROM this morning at 6:00 a.m. for clear fluid. The patient reports increasing contractions for the last several days increasing significantly after her rupture. She denies vaginal bleeding, reports good movement, denies any other complaints. was complicated by late transfer of care from Dr. Thomas, but her has been otherwise uncomplicated. She has a history of vacuum assisted vaginal delivery of a 9 lb 5 oz baby after a prolonged active stage, complicated by 4th degree perineal laceration. She also some history of an early SAB. Her OBGYN history is otherwise only significant for LEEP, and she has history of anxiety and depression but no other contributory medical, surgical, family, or social history. History of Present care: good care, initiated at week # (Eight), number of visits (Eleven) and pounds weight gain (Forty-one) Dating criteria: based on 1st trimester US only Ultrasounds: normal 1st trimester US and normal mid trimester US Obstetrical complications: none Medical complications: none Preadmission Labs Blood type: A (+) positive -: Antibody screen: negative, GBS status: negative, HBsAG: negative, HIV: negative and RPR/VDLR: negative -: Chlamydia screen: not detected and Gonorrhea screen: not detected -: Rubella: immune and Varicella: immune PAP: Normal Cell-free DNA: normal 1 hr GTT: 138 Prior (ies) History: G1: 16: 5 weeks elective [place] G2: 05/21/17: VAVD, 9#5, 40 wks, [facility], 4th degree tear Evaluation Evaluation Baseline heart rate: 140 Variability: Moderate (11-25) monitor accelerations: Present monitor decelerations: Late (x1) Contraction Frequency (minutes): 2 Uterine Contraction Intensity: Moderate Category of Tracing: Reactive Cervical dilation (cm): 6 Cervical effacement (%): 80 station: -3 Laboratory results: Laboratory Tests 04/04/20 08:30 WBC 7.4 RBC 3.62 L Hgb 11.8 L Hct 34.3 L MCV 94.6 MCH 32.4 MCHC 34.3 RDW 13.5 Plt Count 186 Neut % (Auto) 72.1 Lymph % (Auto) 21.6 L [place] % (Auto) 5.2 Eos % (Auto) 0.9 L Baso % (Auto) 0.2 Neut # (Auto) 5300 Lymph # (Auto) 1600 [place] # (Auto) 400 Eos # (Auto) 100 Baso # (Auto) 0 Comments: grossly ruptured COUNTS INCLUDE 234 BEDS AT THE [facility] Medical History Abnormal Papanicolaou smear of cervix with positive human papilloma virus (HPV) test (Acute ~2014) Anxiety (Acute) Depression (Acute) (spontaneous vaginal delivery) (Acute ~2016) Surgical History H/O LEEP (Acute ~2014) Family History Father Depression Alcoholic Anxiety Throat cancer Cancer Heavy smoker Family/Other OCD (obsessive compulsive disorder) Grandfather Diabetes mellitus Stroke Grandmother Non-Hodgkin lymphoma Grandfather ALS (amyotrophic lateral sclerosis) Grandmother Pneumonia Family/Other Hypertension Heart disease Social History marital status: unmarried,living together household members: children pets and animals: Yes (dogs) education level: college occupational status: employed current occupational exposures/hazards: No special mony needs: No Smoking Status: Never smoker second hand exposure: No alcohol intake: former substance use type: does not use Meds Home Medications and Allergies Home Medications Medication Instructions Recorded Confirmed Type prenat.vits,yaima,ong-lzwp-evdsp 1 tab PO DAILY 08/27/19 03/26/20 History omeprazole magnesium PO 11/29/19 03/26/20 History ondansetron 4 mg disintegrating 4 mg PO TID-QID PRN #30 tab 11/29/19 03/26/20 Rx tablet Allergies Allergy/AdvReac Type Severity Reaction Status Date / Time Penicillins [PENICILLINS] Allergy Mild Rash as a Verified 03/26/20 12:38 child Review of Systems Constitutional Constitutional: Reports system reviewed and no additional complaints, except as documented Cardiovascular Cardiovascular: Reports system reviewed and no additional complaints, except as documented Respiratory Respiratory: Reports system reviewed and no additional complaints, except as documented Gastrointestinal Gastrointestinal: Reports system reviewed and no additional complaints, except as documented Genitourinary Genitourinary: Reports system reviewed and no additional complaints, except as documented Neurologic Neurologic: Reports system reviewed and no additional complaints, except as documented Exam Vital Signs (past 8 hours): 92/62, HR 72 Const General: cooperative, healthy appearing and comfortable GI Palpation: soft and No tender External Female Exam: normal external appearance Extrem General: normal to inspection Objective Labs Result Diagrams: 04/04/20 08:30 Labs: Laboratory Results - last 24 hr 04/04/20 08:30 WBC 7.4 RBC 3.62 L Hgb 11.8 L Hct 34.3 L MCV 94.6 MCH 32.4 MCHC 34.3 RDW 13.5 Plt Count 186 Neut % (Auto) 72.1 Lymph % (Auto) 21.6 L [place] % (Auto) 5.2 Eos % (Auto) 0.9 L Baso % (Auto) 0.2 Neut # (Auto) 5300 Lymph # (Auto) 1600 [place] # (Auto) 400 Eos # (Auto) 100 Baso # (Auto) 0 Assessment and Plan Assessment and Plan Assessment and Plan narrative: This patient presents in spontaneous active labor, after SROM at home for clear fluid. She desires and is being prepped for her epidural. Anticipate . - cEFM, toco - epidural imminent
--- NOTE | 2020-04-04 10:01 | PM.AN.REGBLK ---
Regional Block Pre-procedure Procedure: Continuous Lumbar Epidural for L&D Attending OB provider: Sarah ANGULO/KEVIN narrative: term labor, no complications. Hx: No personal or family history of anesthesia problems. ASA Class: II Labs: Hct 34.3 % (36-46) L 04/04/20 08:30 Plt Count 186 X10^3/uL (150-400) 04/04/20 08:30 Medications: Current Medications Generic Name Dose Route Start Last Admin Trade Name Freq PRN Reason Stop Dose Admin Calcium Carbonate 500 mg 04/04/20 08:37 Tums PO Q2HR PRN Dyspepsia Fentanyl 50 mcg 04/04/20 08:37 Sublimaze IV Q1H PRN Pain, Moderate (4-6) Lactated Ringer's 1,000 mls @ 100 mls/hr 04/04/20 08:45 Lactated Ringers IV CONT RENEA Metoclopramide HCl 10 mg 04/04/20 08:37 Reglan IV NOW PRN Nausea And Vomiting Naloxone HCl 0.2 mg 04/04/20 08:37 Narcan IV Q2MIN PRN Opiate Reversal Ondansetron HCl 4 mg 04/04/20 08:37 Zofran IV Q4HR PRN Nausea And Vomiting Allergies: Allergies Allergy/AdvReac Type Severity Reaction Status Date / Time Penicillins [PENICILLINS] Allergy Mild Rash as a Verified 03/26/20 12:38 child Procedure Insertion date: 04/04/20 Insertion time: 09:38 Prep/Local: betadine x3 Interspace: L3-4 Patient position: sitting Needle: 18 gauge Hustead Loss of resistance with: saline ANA at (cm): 5 Catheter placed at SKIN (cm): 10 Catheter in SPACE (cm): 5 Insertion: No CSF, No Blood, No Paresthesia with insertion, No Paresthesia with injection and No Test dose reaction Initial Medications TEST DOSE time: : TEST DOSE: 1.5% lidocaine with epinephrine 1:200k (mL): 3 BOLUS DOSE time: :44 BOLUS DOSE (mL): 5 BOLUS DOSE med: 0.25% bupivacaine Infusion INFUSION: 0.125% bupivacaine and with fentanyl 2 mcg/mL Initial rate (mL/hr): 6 Subsequent interventions: 12:20 5mL 0.25% bupiv with 50mcg fentanyl, 9cm Post-procedure Anesthesia time START: 09:23 Anesthesia time END: 14:25 Post-procedure Anesthesia Assessment: Yes CV function: HR/BP stable, Yes Resp function: RR/sat/airway adequate, Yes Post-op hydration adequate, Yes Pain control adequate, Yes Nausea & vomiting absent, Yes Mental status appropriate and No Anesthesia complications
--- NOTE | 2020-04-04 12:16 | PM.OBPNLAB ---
Date/Time Date Patient Seen: 04/04/20 Time Patient Seen: 12:16 Pain Control Pain control: epidural Pelvic Exam Dilation (cm): 9 Effacement (%): 100 station: -2 Amniotic membrane status: Ruptured (clear fluid) Comments: 9.5cm, cervix anterior and sides Contractions Contraction frequency (min): 2 Contraction intensity: Moderate Status status: Category ll Heart Rate Baseline: 130 Monitor Decelerations: Late Monitor Variability: Minimal Comments: periods of minimal and moderate variability, + scalp stim. Assessment and Plan Assessment: active labor Plan: continuous present management Comments: Patient feeling intermittent pressure, hypotensive after epidural and receiving fluid bolus, making progress. Will continue to reposition, bolus, anesthesia en route to assess blood pressure, anticipate vaginal delivery.
[2020-04-04 13:29] VITALS: BP 92/62
[2020-04-04] MEDS: OXYTOCIN 10 UNIT/ML VIAL 20 UNIT (14:28)
--- NOTE | 2020-04-04 14:47 | PM.OBPRVD ---
Labor & Delivery Delivery date: 04/04/20 Intrapartal events: Acceleration and Deceleration Cervical ripening method: none Induction method: none Delivery monitor: external FHT and external uterine Route of delivery: L&D Laceration Description: Perineal - 2nd Degree Delivery repair: vicryl Estimated blood loss (mL): 200 Anesthesia type: Epidural Narrative: This patient is a 34yo now P2 who presented in active labor after SROM at home for clear fluid. She progressed unaugmented to fully dilated, and after an approximately 45 minute second stage, was delivered of a healthy baby boy weighing 8#15. There was no nuchal cord, and the shoulders delivered with ease. The placenta delivered spontaneously and intact shortly thereafter. A 2nd degree perineal laceration was noted along the prior laceration scar, and was repaired with 3-0 vicryl in the usual fashion. There were no other intrapartum or immediate complications. [place] Baby 1: Infant gender: Male Presentation: vertex position: Right Occiput Anterior Placenta delivery description: Spontaneous cord vessel description: 3 Vessels score (1 min): 9 score (5 min): 9 Plan for aftercare: Routine care
[2020-04-04] MEDS: IBUPROFEN 600 MG TABLET PO ×2 (17:25→23:37)
[2020-04-04] MEDS: DERMOPLAST SPRAY 20% 60 ML 1 SPRAY TOP (17:25)
[2020-04-04] MEDS: OXYCODONE IR 5 MG TABLET PO ×2 (19:44→23:38)
[2020-04-05] MEDS: OXYCODONE IR 5 MG TABLET PO ×2 (03:40→08:20)
[2020-04-05] MEDS: IBUPROFEN 600 MG TABLET PO (08:20)
[2020-04-05] MEDS: DOCUSATE 100 MG CAPSULE PO (08:21)
[2020-04-05] MEDS: LANOLIN OINT 7 GM 1 APPLIC TOP (08:21)
--- NOTE | 2020-04-05 09:23 | P.DS_ITS ---
Discharge Providers Provider Date of admission: 04/04/20 07:29 Discharge Date: 04/05/20 Primary care physician: Ayo Lal Consults: 04/05/20 14:57 Consult to Gis Developer Routine Comment: Discharge provider: Sarah Mendez MD Summary Hospital Course Date Patient Seen: 04/05/20 Time Patient Seen: 09:36 Procedures: vaginal delivery Hospital Course: This patient presented in active labor after SROM at home for clear fluid. She progressed unaugmented and was delivered of a healthy baby boy, with no intrapartum or complications. She was discharged home per precautions on PPD#1. Peripartum Data Infant Delivery Method: Natural Vaginal Laceration Description: Perineal - 2nd Degree complications: none 1: Gender: Male Disposition of : home Status at Discharge Cognitive/behavioral status at discharge: oriented Functional status at discharge: independent ambulation Overall status at discharge: patient is progressing back to baseline Time Spent with Patient Time attestation: Total time spent providing and/or coordinating discharge services: Time spent: Greater than 30 minutes Objective Labs Result Diagrams: 04/04/20 08:30 Labs: Laboratory Results - last 24 hr 04/04/20 08:30 Blood Type A Positive Antibody Screen Negative Exam Vital Signs (past 8 hours): 92/54, HR 84 Discharge Plan Discharge Plan Patient Disposition: Home Discharge orders & Medications Prescriptions: New ibuprofen 600 mg tablet 600 mg PO Q6H PRN (Reason: pain) Qty: 30 RF: 1 oxycodone 5 mg tablet 5 mg PO Q8H PRN (Reason: pain) Qty: 14 RF: 0 Continued prenat.vits,yaima,[id number] Tablet 1 tab PO DAILY RF: 0 Follow up/Referrals: Ayo Lal [Primary Care Provider] - Sarah Mendez MD [Physician] - 6 Weeks Diet/Activity/Treatments Diet: Regular Activity: Nothing in the vagina for 6 weeks. Avoid lifting more than 10 lbs for 6 weeks. If you have bleeding soaking more than 2 pads/hr for 2 hours, fevers, chills, increasing pain, nausea, vomiting, headaches, visual changes, or any other concerning symptoms, call or come to the emergency room. Skin/Wound/Dressing Care Report to your healthcare provider any signs of infection, such as:: chills, fever, night sweats, increased pain, unusual drainage and unusual redness Visit Report/Discharge Packet Instructions: DI for Labor and Delivery, Vaginal Discharge Data Primary Care Provider: Ayo Lal Attending Provider: Sarah Mendez Admclif Date/Time: 04/04/20 07:29
--- NOTE | 2020-04-05 09:23 | P.PNOB_ITS ---
Subjective - OB Subjective Patient comments: pain well controlled, tolerating diet and flatus present [place] baby status: doing well and nursing well [place] feeding status: exclusively breast feeding Narrative: This patient is a 34yo now P2 PPD#1 s/p uncomplicated . She is ambulating, tolerating PO, voiding, passing flatus, and has good pain control. She reports moderate lochia. She reports a recurrence of her sciatica pain, and some hip pain after pushing which she is managing with motrin and oxycodone. Date Patient Seen: 04/05/20 Time Patient Seen: 09:23 Exam Const General: cooperative, healthy appearing and comfortable Resp Effort & Inspection: normal respiratory effort Auscultation: clear to auscultation bilaterally Cardio Rate: regular rate Rhythm: regular rhythm GI Palpation: soft and No tender Other: exam deferred as patient sitting in chair nursing Extrem General: normal to inspection Objective Labs Result Diagrams: 04/04/20 08:30 Labs: Laboratory Results - last 24 hr 04/04/20 08:30 Blood Type A Positive Antibody Screen Negative Assessment & Plan Plan day: 1 plan OB: discharge home Comments: This patient is meeting goals appropriately, and desires discharge home by mid[place] ferry. precautions were discussed. Follow up in clinic in 4-6 weeks. Time Spent With Patient Time: Total time spent is greater than 50% in coordination of care (as documented) at patient's floor/unit and/or counseling patient: Time with patient: less than 15 minutes
[2020-04-05 12:49] VITALS: BP 92/62; PULSE 76; RESP 18; TEMP 36.7
== END 2020-04-05 13:30 | disposition home or self-care (01) | DRG 560 ==
PROVIDERS: Admitting Provider Obstetrics & Gynecology; PCP Family Medicine; Referring Provider Obstetrics & Gynecology; Visit Provider Obstetrics & Gynecology
DX: O70.1 Second degree perineal laceration during delivery (principal); Z3A.39 39 weeks gestation of pregnancy; Z37.0 Single live birth; F41.9 Anxiety disorder, unspecified; F32.9 Major depressive disorder, single episode, unspecified
CPT/HCPCS: 01967; 36415; 59050; 59409; 76815; 85025; 86850; 86900; 86901; G0378; G0379; J2590

== ENCOUNTER → 2022-04-04 10:30 | Outpatient (CLI) | payer OTHER, MEDICAID, SELFPAY ==
[2022-04-04 19:44] LABS: Add Manual Diff / Slide Review NO; Basophils Absolute Auto 0 /uL (0-100); Basophils Percent Auto 0.5 % (0-2); Eosinophils Absolute Auto 0 /uL (0-450); Eosinophils Percent Auto 0.8 % (2-4); Hematocrit 37.3 % (36-46); Hemoglobin 12.9 g/dL (12.0-16.0); Lymphocytes Absolute Auto 2200 /uL (1100-4500); Lymphocytes Percent Auto 35.7 % (25-40); Mean Corpuscular HGB Conc 34.5 % (30-36); Mean Corpuscular Hemoglobin 31.5 PG (26-34); Monocytes Absolute Auto 400 /uL (0-900); Monocytes Percent Auto 6.7 % (3-14); Neutrophils Absolute Auto 3400 /uL (1500-7000); Neutrophils Percent Auto 56.3 % (50-75); Platelet Count 277 X10^3/uL (150-400); Red Blood Cell Count 4.09 X10^6/uL (4.0-5.2); Red Cell Distribution Width 12.9 % (11.6-14.8)
[2022-04-04 19:55] LABS: Alanine Aminotransferase 14 IU/L (<35); Albumin 4.1 g/dL (3.5-5.0); Albumin Globulin Ratio 1.3 (1.0-2.8); Alkaline Phosphatase 50 U/L (38-126); Aspartate Aminotransferase 36 IU/L (14-36); BUN Creatinine Ratio 12.7 (6-22); Bilirubin Total 0.6 mg/dL (0.2-1.3); Blood Urea Nitrogen 8 mg/dL (7-17); Calcium 9.3 mg/dL (8.4-10.2); Carbon Dioxide 26 mmol/L (22-32); Chloride 101 mmol/L (98-107); Estimated Glomerular Filt Rate > 60 mL/min (>60); Globulin 3.2 g/dL (1.7-4.1); Glucose 88 mg/dL (70-100); HEMOLYSIS 17 (0-50); Sodium 138 mmol/L (137-145); Total Protein 7.3 g/dL (6.3-8.2)
[2022-04-04 19:56] LABS: HEMOLYSIS < 15 (0-50); Iron 128 ug/dL (37-170)
[2022-04-04 20:11] LABS: Percent Iron Saturation 35 % (15-50); Total Iron Binding Capacity 361 ug/dL (265-497); Transferrin 256 mg/dL (206-381)
[2022-04-04 20:23] LABS: TSH w/ Reflex to FT4 0.87 uIU/mL (0.47-4.68)
[2022-04-04 20:36] LABS: Vitamin B12 283 pg/mL (239-931)
[2022-04-07 14:51] LABS: ANA Screen, IFA Negative (.)
== END ==
PROVIDERS: PCP Physician Assistant; Visit Provider Family Medicine
DX: D64.9 Anemia, unspecified (principal); N92.0 Excessive and frequent menstruation with regular cycle; R53.83 Other fatigue; M79.10 Myalgia, unspecified site; Z86.16 Personal history of COVID-19
CPT/HCPCS: 80053; 82607; 83540; 83550; 84443; 85025; 86038

== ENCOUNTER 2022-04-25 10:53 | Emergency (ER) | payer OTHER, MEDICAID, SELFPAY ==
--- NOTE | 2022-04-25 11:29 | DI.RAD.S_ITS ---
PROCEDURE: XR CHEST 1V INDICATIONS: chest pain TECHNIQUE: One view of the chest was acquired. COMPARISON: None. FINDINGS: Surgical changes and devices: None. Lungs and pleura: Lungs are clear. No pleural effusions or pneumothorax. Mediastinum: Mediastinal contours appear normal. Heart size is normal. Bones and chest wall: No suspicious bony lesions. Overlying soft tissues appear unremarkable. IMPRESSION: No acute cardiopulmonary pathology. Dictated by: Teddy Weir M.D. on 04/25/2022 at 12:26 Approved by: Teddy Weir M.D. on 04/25/2022 at 12:26
[2022-04-25 11:31] VITALS: BP 127/73; PULSE 87; RESP 17; TEMP 36.9; O2SAT 98; BMI 24.2
[2022-04-25 12:04] LABS: Add Manual Diff / Slide Review NO; Basophils Absolute Auto 0 /uL (0-100); Basophils Percent Auto 0.4 % (0-2); Eosinophils Absolute Auto 100 /uL (0-450); Eosinophils Percent Auto 1.4 % (2-4); Hematocrit 36.7 % (36-46); Hemoglobin 12.5 g/dL (12.0-16.0); Lymphocytes Absolute Auto 2100 /uL (1100-4500); Lymphocytes Percent Auto 40.3 % (25-40); Mean Corpuscular HGB Conc 34.1 % (30-36); Mean Corpuscular Hemoglobin 31.3 PG (26-34); Mean Corpuscular Volume 91.7 fL (80-100); Monocytes Absolute Auto 300 /uL (0-900); Monocytes Percent Auto 5.8 % (3-14); Neutrophils Absolute Auto 2700 /uL (1500-7000); Neutrophils Percent Auto 52.1 % (50-75); Platelet Count 237 X10^3/uL (150-400); Red Blood Cell Count 4.01 X10^6/uL (4.0-5.2); Red Cell Distribution Width 13.1 % (11.6-14.8); White Blood Cell Count 5.1 X10^3/uL (4.5-11.0)
[2022-04-25 12:14] LABS: Alanine Aminotransferase 13 IU/L (<35); Albumin 4.2 g/dL (3.5-5.0); Albumin Globulin Ratio 1.5 (1.0-2.8); Alkaline Phosphatase 37 U/L (38-126); Aspartate Aminotransferase 18 IU/L (14-36); BUN Creatinine Ratio 15.7 (6-22); Bilirubin Total 0.4 mg/dL (0.2-1.3); Blood Urea Nitrogen 11 mg/dL (7-17); Calcium 9.3 mg/dL (8.4-10.2); Carbon Dioxide 26 mmol/L (22-32); Chloride 103 mmol/L (98-107); Creatine Kinase 47 U/L (30-135); Estimated Glomerular Filt Rate > 60 mL/min (>60); Globulin 2.8 g/dL (1.7-4.1); Glucose 94 mg/dL (70-100); HEMOLYSIS < 15 (0-50); Magnesium 1.8 mg/dL (1.6-2.3); Potassium 4.4 mmol/L (3.4-5.1); Sodium 136 mmol/L (137-145)
[2022-04-25 12:25] LABS: Troponin I < 0.012 ng/mL (0.01-0.034)
[2022-04-25 12:41] LABS: Amorphous Sediment Urine 1+; Bacteria Urine Few (2-10); Culture Indicated Urine Specimen Cultured; Mucus Urine 1+ (Negative); RBC Urine None Seen (0-5/HPF); Squamous Epithelial Cell Urine 5-10 /HPF (0-5/HPF); WBC Urine 10-30/HPF (0-5/HPF)
--- NOTE | 2022-04-25 12:51 | ED_ITS ---
HPI - General Adult <Marilin Loja PA-C - Last Filed: 04/25/22 16:22> General Chief complaint: Dizziness Stated complaint: Light headed, dizziness, fatigue Time Seen by Provider: 04/25/22 12:40 Source: patient Mode of arrival: Ambulatory History of Present Illness HPI narrative: 36-year-old female with past medical history asthma, anemia presents to the ED with 3 weeks of fatigue, malaise. Patient states that her symptoms got worse yesterday, when she was driving her car, she felt lightheaded, she felt like she did not know what she was doing. Patient states that she has had brain fog since she had the COVID-19 infection. Patient denies fever, chills, chest pain, shortness of breath, vomiting, abdominal pain, flank pain, dysuria, urinary frequency, urinary urgency, diarrhea, constipation. Patient does endorse some nausea. Related Data Home Medications Medication Instructions Recorded Confirmed Elderberry PO DAILY 04/04/22 Iron PO DAILY 04/04/22 ascorbic acid (vitamin C) 1,000 mg 1 g PO DAILY 04/04/22 04/04/22 capsule cholecalciferol (vitamin D3) 25 25 mcg PO DAILY 04/04/22 04/04/22 mcg (1,000 unit) capsule cyanocobalamin (vitamin B-12) 1,000 mcg PO DAILY 04/04/22 04/04/22 1,000 mcg capsule Previous Rx's Medication Instructions Recorded albuterol sulfate 90 mcg/actuation 2 puff inhalation Q4-6H PRN 12/02/21 aerosol inhaler (Ventolin HFA) shortness of breath or wheezing #8.5 grams ciprofloxacin HCl 500 mg tablet 500 mg PO Q12H 7 days #14 tabs 04/25/22 (Cipro) Allergies Allergy/AdvReac Type Severity Reaction Status Date / Time Penicillins [PENICILLINS] Allergy Mild Rash as a Verified 04/25/22 11:33 child Review of Systems <Marilin Loja PA-C - Last Filed: 04/25/22 16:22> Review of Systems ROS Unobtainable: All systems reviewed & are unremarkable except as noted in HPI and below Constitutional Constitutional: Denies chills, Reports fatigue, Denies fever(s), Denies frequent falls, Reports lethargy, Reports malaise and Denies weakness Eyes Eyes: Denies change in vision, Denies eye discharge, Denies irritation and Denies loss of vision ENT Ears, Nose, Mouth, and Throat: Denies change in voice, Denies dizziness, Denies neck pain, Denies sore throat and Denies throat swelling Cardiovascular Cardiovascular: Denies chest pain, Denies irregular heart rhythm, Denies lightheadedness, Denies palpitations, Denies dyspnea, Denies dyspnea on exertion and Denies orthopnea Respiratory Respiratory: Denies cough, Denies dyspnea, Denies dyspnea on exertion and Denies wheezing Gastrointestinal Gastrointestinal: Denies abdominal pain, Denies change in bowel habits, Denies diarrhea, Reports nausea and Denies vomiting Genitourinary Genitourinary: Denies hematuria, Denies flank pain, Denies urinary incontinence and Denies urinary urgency Musculoskeletal Musculoskeletal: Denies back pain, Denies muscle weakness, Denies neck pain, Denies numbness and Denies tingling Integumentary/Breasts Skin/Breast: Denies pruritus, Denies erythema, Denies rash and Denies wounds Neurologic Neurologic: Denies behavioral changes, Denies confusion, Denies dizziness, Denies frequent falls, Denies loss of vision, Denies numbness, Denies tingling and Denies weakness Psychiatric Psychiatric: Denies anxiety, Denies behavioral changes, Denies confusion, Denies depression, Denies homicidal ideation and Denies suicidal ideation Endocrine Endocrine: Reports fatigue, Denies flushing and Denies palpitations Hematologic/Lymphatic Hematologic/Lymphatic: Denies easy bruising Allergic/Immunologic Allergic/Immunologic: Denies urticaria, Denies throat swelling and Denies wheezing Patient History <Marilin Loja PA-C - Last Filed: 04/25/22 16:22> Medical History Abnormal Papanicolaou smear of cervix with positive human papilloma virus (HPV) test (~2014) Acute upper respiratory infection Anxiety Depression (spontaneous vaginal delivery) (~2016) Surgical History H/O LEEP (~2014) Family History Father Depression Alcoholic Anxiety Throat cancer Cancer Heavy smoker Family/Other OCD (obsessive compulsive disorder) Grandfather Diabetes mellitus Stroke Grandmother Non-Hodgkin lymphoma Grandfather ALS (amyotrophic lateral sclerosis) Grandmother Pneumonia Family/Other Hypertension Heart disease Social History marital status: unmarried,living together household members: children pets and animals: Yes (dogs) education level: college occupational status: employed current occupational exposures/hazards: No special mony needs: No Smoking Status: Never smoker second hand exposure: No alcohol intake: former substance use type: does not use Smoking Status: Never smoker alcohol intake frequency: holidays/special occasions only Substance Use Type: does not use Exam <Marilin Loja PA-C - Last Filed: 04/25/22 16:22> Narrative Exam Narrative: Const General:?cooperative, healthy appearing and comfortable HENNY Head:?normal to inspection Ears:?hearing grossly normal bilaterally Nose:?external nose normal Face and sinus:?normal facial exam and sinuses nontender Mouth:?oral mucosae normal Throat:?posterior oropharynx normal Eyes General:?appearance normal, both eyes and all related structures Neck Neck:?normal visual inspection and no lymphadenopathy noted Resp Effort & Inspection:?normal respiratory effort Auscultation:?clear to auscultation bilaterally Cardio Rate:?regular rate Rhythm:?regular rhythm GI Abdomen is soft, nondistended, nontender to palpation. There is CVA tenderness on the right side. Neuro General:?patient alert, patient awake and patient oriented x3 Initial Vital Signs Initial Vital Signs: Vital Signs Temperature 98.4 F 04/25/22 11:31 Pulse Rate 87 04/25/22 11:31 Respiratory Rate 17 04/25/22 11:31 Blood Pressure 127/73 04/25/22 11:31 Pulse Oximetry 98 04/25/22 11:31 Oxygen Delivery Method 04/25/22 11:31 <Lucia Chowdhury MD - Last Filed: 04/25/22 17:42> Initial Vital Signs Initial Vital Signs: Vital Signs Temperature 98.4 F 04/25/22 11:31 Pulse Rate 87 04/25/22 11:31 Respiratory Rate 17 04/25/22 11:31 Blood Pressure 127/73 04/25/22 11:31 Pulse Oximetry 98 04/25/22 11:31 Oxygen Delivery Method 04/25/22 11:31 Course <Marilin Loja PA-C - Last Filed: 04/25/22 16:22> Orders Ordered: ED Orders 04/25/22 11:29 XR chest 1V Stat EKG-12 Lead Stat 04/25/22 11:35 Urine Culture Stat Urine Microscopic Stat 04/25/22 11:50 Complete Blood Count AUTO DIFF Stat Comprehensive Metabolic Panel Stat Magnesium Stat Troponin & CK Cardiac Panel Stat Vital Signs Vital signs: Vital Signs - 8 hr 04/25/22 11:31 04/25/22 13:33 Temperature 98.4 F Pulse Rate 87 88 Respiratory Rate 17 16 Blood Pressure 127/73 128/76 Pulse Oximetry 98 98 Oxygen Delivery Method Room Air Room Air <Lucia Chowdhury MD - Last Filed: 04/25/22 17:42> Orders Ordered: ED Orders 04/25/22 11:29 XR chest 1V Stat EKG-12 Lead Stat 04/25/22 11:35 Urine Culture Stat Urine Microscopic Stat 04/25/22 11:50 Complete Blood Count AUTO DIFF Stat Comprehensive Metabolic Panel Stat Magnesium Stat Troponin & CK Cardiac Panel Stat Vital Signs Vital signs: Vital Signs - 8 hr 04/25/22 11:31 04/25/22 13:33 Temperature 98.4 F Pulse Rate 87 88 Respiratory Rate 17 16 Blood Pressure 127/73 128/76 Pulse Oximetry 98 98 Oxygen Delivery Method Room Air Room Air Medical Decision Making <Marilin Loja PA-C - Last Filed: 04/25/22 16:22> Lab Data Result diagrams: 04/25/22 11:50 04/25/22 11:50 Labs: Lab Results 04/25/22 04/25/22 04/25/22 Range/Units 11:35 11:50 11:50 WBC 5.1 (4.5-11.0) X10^3/uL RBC 4.01 (4.0-5.2) X10^6/uL Hgb 12.5 (12.0-16.0) g/dL Hct 36.7 (36-46) % MCV 91.7 (80-100) fL MCH 31.3 (26-34) PG MCHC 34.1 (30-36) % RDW 13.1 (11.6-14.8) % Plt Count 237 (150-400) X10^3/uL Neut % (Auto) 52.1 (50-75) % Lymph % (Auto) 40.3 H (25-40) % [place] % (Auto) 5.8 (3-14) % Eos % (Auto) 1.4 L (2-4) % Baso % (Auto) 0.4 (0-2) % Neut # (Auto) 2700 (3286-8567) /uL Lymph # (Auto) 2100 (4657-1078) /uL [place] # (Auto) 300 (0-900) /uL Eos # (Auto) 100 (0-450) /uL Baso # (Auto) 0 (0-100) /uL Sodium 136 L (137-145) mmol/L Potassium 4.4 (3.4-5.1) mmol/L Chloride 103 (98-107) mmol/L Carbon Dioxide 26 (22-32) mmol/L BUN 11 (7-17) mg/dL Creatinine 0.70 (0.52-1.04) mg/dL Estimated GFR > 60 (>60) mL/min BUN/Creatinine Ratio 15.7 (6-22) Glucose 94 (70-100) mg/dL Calcium 9.3 (8.4-10.2) mg/dL Magnesium 1.8 (1.6-2.3) mg/dL Total Bilirubin 0.4 (0.2-1.3) mg/dL AST 18 (14-36) IU/L ALT 13 (<35) IU/L Alkaline Phosphatase 37 L (38-126) U/L Total Creatine Kinase 47 (30-135) U/L CK-MB (CK-2) TNP CK-MB (CK-2) Rel Index TNP Troponin I < 0.012 (0.01-0.034) ng/mL Total Protein 7.0 (6.3-8.2) g/dL Albumin 4.2 (3.5-5.0) g/dL Globulin 2.8 (1.7-4.1) g/dL Albumin/Globulin Ratio 1.5 (1.0-2.8) Urine RBC None seen (0-5/HPF) Urine WBC 10-30/hpf H (0-5/HPF) Ur Squamous Epith Cells 5-10 /hpf H (0-5/HPF) Amorphous Sediment 1+ Urine Bacteria Few (2-10) H (None) Urine Mucus 1+ H (Negative) Ur Culture Indicated? Specimen cultured Point of Care Testing Test Results Negative Urine Dip Bedside Urine Glucose Negative Bedside Urine Bilirubin - Negative Bedside Urine Ketone - Negative Urine Specific [place] 1.015 Bedside Urine Occult Blood - Negative Bedside Urine pH 7.0 Bedside Urine Protein - Negative Bedside Urine Urobilinogen - Negative Bedside Urine Nitrite - Negative Bedside Urine Leukocytes ++ 125 Esterase Point of care testing: Point of Care Testing Test Results Negative Urine Dip Bedside Urine Glucose Negative Bedside Urine Bilirubin - Negative Bedside Urine Ketone - Negative Urine Specific [place] 1.015 Bedside Urine Occult Blood - Negative Bedside Urine pH 7.0 Bedside Urine Protein - Negative Bedside Urine Urobilinogen - Negative Bedside Urine Nitrite - Negative Bedside Urine Leukocytes ++ 125 Esterase Imaging Data Chest x-ray: Radiologist's Impression: PROCEDURE:? XR CHEST 1V ? INDICATIONS:? chest pain ? TECHNIQUE:? One view of the chest was acquired.? ? COMPARISON:? None. ? FINDINGS:? ? Surgical changes and devices:? None.? ? Lungs and pleura:? Lungs are clear.? No pleural effusions or pneumothorax.? ? Mediastinum:? Mediastinal contours appear normal.? Heart size is normal.? ? Bones and chest wall:? No suspicious bony lesions.? Overlying soft tissues appear unremarkable.? ? IMPRESSION:? No acute cardiopulmonary pathology. ? ? Dictated by: Teddy Weir M.D. on 04/25/2022 at 12:26 ? ? Approved by: Teddy Weir M.D. on 04/25/2022 at 12:26 ? [facility] Narrative Additional Information: 36-year-old female with past medical history asthma, anemia presents to the ED with 3 weeks of fatigue, malaise. Concern for dehydration versus metabolic derangements versus anemia versus viral syndrome versus UTI. EKG, chest x-ray, labs within normal limits. UA was positive for a UTI. Patient also has right- sided CVA tenderness. Patient's symptoms likely due to pyelonephritis. Prescribed antibiotics. ED return precautions discussed with patient. Patient also agrees to follow-up with the PCP in a few days. <Lucia Chowdhury MD - Last Filed: 04/25/22 17:42> Lab Data Labs: Lab Results 04/25/22 04/25/22 04/25/22 Range/Units 11:35 11:50 11:50 WBC 5.1 (4.5-11.0) X10^3/uL RBC 4.01 (4.0-5.2) X10^6/uL Hgb 12.5 (12.0-16.0) g/dL Hct 36.7 (36-46) % MCV 91.7 (80-100) fL MCH 31.3 (26-34) PG MCHC 34.1 (30-36) % RDW 13.1 (11.6-14.8) % Plt Count 237 (150-400) X10^3/uL Neut % (Auto) 52.1 (50-75) % Lymph % (Auto) 40.3 H (25-40) % [place] % (Auto) 5.8 (3-14) % Eos % (Auto) 1.4 L (2-4) % Baso % (Auto) 0.4 (0-2) % Neut # (Auto) 2700 (1763-5463) /uL Lymph # (Auto) 2100 (6842-6528) /uL [place] # (Auto) 300 (0-900) /uL Eos # (Auto) 100 (0-450) /uL Baso # (Auto) 0 (0-100) /uL Sodium 136 L (137-145) mmol/L Potassium 4.4 (3.4-5.1) mmol/L Chloride 103 (98-107) mmol/L Carbon Dioxide 26 (22-32) mmol/L BUN 11 (7-17) mg/dL Creatinine 0.70 (0.52-1.04) mg/dL Estimated GFR > 60 (>60) mL/min BUN/Creatinine Ratio 15.7 (6-22) Glucose 94 (70-100) mg/dL Calcium 9.3 (8.4-10.2) mg/dL Magnesium 1.8 (1.6-2.3) mg/dL Total Bilirubin 0.4 (0.2-1.3) mg/dL AST 18 (14-36) IU/L ALT 13 (<35) IU/L Alkaline Phosphatase 37 L (38-126) U/L Total Creatine Kinase 47 (30-135) U/L CK-MB (CK-2) TNP CK-MB (CK-2) Rel Index TNP Troponin I < 0.012 (0.01-0.034) ng/mL Total Protein 7.0 (6.3-8.2) g/dL Albumin 4.2 (3.5-5.0) g/dL Globulin 2.8 (1.7-4.1) g/dL Albumin/Globulin Ratio 1.5 (1.0-2.8) Urine RBC None seen (0-5/HPF) Urine WBC 10-30/hpf H (0-5/HPF) Ur Squamous Epith Cells 5-10 /hpf H (0-5/HPF) Amorphous Sediment 1+ Urine Bacteria Few (2-10) H (None) Urine Mucus 1+ H (Negative) Ur Culture Indicated? Specimen cultured Point of Care Testing Test Results Negative Urine Dip Bedside Urine Glucose Negative Bedside Urine Bilirubin - Negative Bedside Urine Ketone - Negative Urine Specific [place] 1.015 Bedside Urine Occult Blood - Negative Bedside Urine pH 7.0 Bedside Urine Protein - Negative Bedside Urine Urobilinogen - Negative Bedside Urine Nitrite - Negative Bedside Urine Leukocytes ++ 125 Esterase Point of care testing: Point of Care Testing Test Results Negative Urine Dip Bedside Urine Glucose Negative Bedside Urine Bilirubin - Negative Bedside Urine Ketone - Negative Urine Specific [place] 1.015 Bedside Urine Occult Blood - Negative Bedside Urine pH 7.0 Bedside Urine Protein - Negative Bedside Urine Urobilinogen - Negative Bedside Urine Nitrite - Negative Bedside Urine Leukocytes ++ 125 Esterase Discharge Plan Departure Patient Disposition: Home Clinical Impression: Pyelonephritis Instructions: DI for Kidney Infection Activity Restrictions/Additional Instructions: You were evaluated in the ED today for lightheadedness, fatigue. Your chest x- ray, EKG, labs were normal. Your urine did show a kidney infection, for which you are being prescribed antibiotics. Please complete the full course of antibiotics. Your urine is being sent for culture as well, and we will call you if it indicates a change in antibiotics. It is quite common, not sure, vomiting, discomfort urinating, urinary urgency or frequency, fatigue when you have a kidney infection. Please follow-up with your PCP in 3-4 days. Please return to the ED if your symptoms worsen, you are uncontrolled vomiting. Prescriptions: New ciprofloxacin HCl [Cipro] 500 mg tablet 500 mg PO Q12H 7 Days Qty: 14 0RF No Action albuterol sulfate [Ventolin HFA] 90 mcg/actuation HFA aerosol inhaler 2 puff inhalation Q4-6H PRN (Reason: shortness of breath or wheezing) Qty: 8.5 0RF cholecalciferol (vitamin D3) 25 mcg (1,000 unit) capsule 25 mcg PO DAILY cyanocobalamin (vitamin B-12) 1,000 mcg capsule 1,000 mcg PO DAILY ascorbic acid (vitamin C) 1,000 mg capsule 1 g PO DAILY Elderberry PO DAILY Iron PO DAILY Referrals: Leia Plummer PA-C [Primary Care Provider] - Visit Report Forms: Patient Portal/API <Lucia Chowdhury MD - Last Filed: 04/25/22 17:42> Cosign ED Attending Cosignature Attestation: I was immediately available in the department for consultation throughout this patient's visit. I agree with documentation as above. Lucia Chowdhury MD
[2022-04-25 13:33] VITALS: BP 128/76; PULSE 88; RESP 16; O2SAT 98
== END 2022-04-25 13:34 | disposition home or self-care (01) ==
PROVIDERS: Emergency Medicine; Emergency Provider Student in an Organized Health Care Education/Training Program; PCP Physician Assistant
DX: N12 Tubulo-interstitial nephritis, not specified as acute or chronic (principal); R07.9 Chest pain, unspecified
CPT/HCPCS: 36415; 71045; 80053; 81003; 81015; 81025; 82550; 83735; 84484; 85025; 87086; 93005; 99284

== ENCOUNTER → 2022-05-03 11:36 | Outpatient (CLI) | payer OTHER, MEDICAID, SELFPAY ==
[2022-05-03 20:29] LABS: Vitamin B12 Reflex MMA if <400 574 pg/mL (239-931)
[2022-05-06 13:22] LABS: ANA Screen, IFA Negative (.)
== END ==
PROVIDERS: PCP Physician Assistant; Visit Provider Family Medicine
DX: D64.9 Anemia, unspecified (principal); G62.9 Polyneuropathy, unspecified; R41.89 Other symptoms and signs involving cognitive functions and awareness; R47.01 Aphasia
CPT/HCPCS: 82607; 86038

== ENCOUNTER → 2024-09-16 10:00 | Outpatient (CLI) | payer OTHER, SELFPAY ==
[2024-09-16 20:14] LABS: Add Manual Diff / Slide Review NO; Alanine Aminotransferase 14 IU/L (<35); Albumin 4.2 g/dL (3.5-5.0); Albumin Globulin Ratio 1.5 (1.0-2.8); Alkaline Phosphatase 42 U/L (38-126); Aspartate Aminotransferase 79 IU/L (14-36); BUN Creatinine Ratio 6.7 (6-22); Basophils Absolute Auto 0 /uL (0-100); Basophils Percent Auto 0.4 % (0-2); Bilirubin Total 0.5 mg/dL (0.2-1.3); Blood Urea Nitrogen 4 mg/dL (7-17); Calcium 9.1 mg/dL (8.4-10.2); Carbon Dioxide 24 mmol/L (22-32); Chloride 107 mmol/L (98-107); Cholesterol 183 mg/dL (140-199); Eosinophils Absolute Auto 100 /uL (0-450); Eosinophils Percent Auto 1.4 % (2-4); Estimated Glomerular Filt Rate > 60 mL/min (>60); Globulin 2.8 g/dL (1.7-4.1); Glucose 88 mg/dL (70-100); HDL Cholesterol 53 mg/dL (40-60); HEMOLYSIS 33 (0-50); Hematocrit 36.7 % (36-46); Hemoglobin 12.4 g/dL (12.0-16.0); LDL Cholesterol Calculated 120 mg/dL (<100); Lymphocytes Absolute Auto 1900 /uL (1100-4500); Lymphocytes Percent Auto 40.4 % (25-40); Mean Corpuscular HGB Conc 33.9 % (30-36); Mean Corpuscular Hemoglobin 31.3 PG (26-34); Mean Corpuscular Volume 92.2 fL (80-100); Monocytes Absolute Auto 400 /uL (0-900); Monocytes Percent Auto 7.5 % (3-14); Neutrophils Absolute Auto 2300 /uL (1500-7000); Neutrophils Percent Auto 50.3 % (50-75); Platelet Count 247 X10^3/uL (150-400); Potassium 3.8 mmol/L (3.4-5.1); Red Blood Cell Count 3.97 X10^6/uL (4.0-5.2); Red Cell Distribution Width 13.3 % (11.6-14.8); Sodium 138 mmol/L (137-145); Triglycerides 51 mg/dL (35-150); White Blood Cell Count 4.7 X10^3/uL (4.5-11.0)
[2024-09-16 20:25] LABS: HEMOLYSIS < 15 (0-50); Iron 83 ug/dL (37-170)
[2024-09-16 20:39] LABS: Percent Iron Saturation 27 % (15-50); Total Iron Binding Capacity 311 ug/dL (265-497); Transferrin 282 mg/dL (206-381)
[2024-09-16 20:49] LABS: Ferritin 9 ng/mL (6-137)
[2024-09-16 20:57] LABS: TSH w/ Reflex to FT4 0.73 uIU/mL (0.47-4.68)
== END ==
PROVIDERS: PCP Family Medicine; Visit Provider Physician Assistant
DX: D64.9 Anemia, unspecified (principal); R53.83 Other fatigue; Z13.6 Encounter for screening for cardiovascular disorders; Z79.899 Other long term (current) drug therapy
CPT/HCPCS: 80053; 80061; 82728; 83540; 83550; 84443; 85025

== ENCOUNTER 2025-04-01 08:56 | Day surgery (SDC) | payer OTHER, SELFPAY ==
[2025-04-01] VITALS (7 sets, daily range): BP systolic 85–98; BP diastolic 50–70; PULSE 62–73; RESP 16–18; TEMP 36.2–36.6; O2SAT 96–100
--- NOTE | 2025-04-01 | PATH_ITS ---
[facility] Accession Number: [id number] No. of containers..01 Tissue . 01 Material submitted: . colon - SIGMOID POLYP . 01 Diagnosis: SIGMOID COLON POLYP: Tubular adenoma. MRV 04/10/2025 1224 Local . 01 Electronically signed: . Ricky Rajput MD, PhD, Pathologist NPI- [id number] . 01 Gross description: . Received is one formalin-filled container labeled with the patient's name and designated sigmoid polyp, is one fragment of lindsey, soft tissue which measures 0.5 x 0.4 x 0.5 cm. The specimen is totally submitted in cassette A1. ([id number]) /[facility] 04/08/2025 0850 Local . 01 Pathologist provided ICD-10: D12.5 . 01 CPT . 929020 Specimen Comment: A courtesy copy of this report has been sent to [facility] Performed at: [address] [address], [place], [place] [id number] MD Garry Ge MD Phone: [phone]
--- NOTE | 2025-04-01 06:43 | PM.HP.IH.1 ---
History of Present Illness History of Present Illness Date Patient Seen: 04/01/25 Time Patient Seen: 06:43 Chief complaint: Colonoscopy Narrative: 39yo F presents for screening colonoscopy. [facility] Medical History (Updated 04/01/25 @ 06:44 by Papo Salmeron MD) Acne Tinnitus (~2021) Acute upper respiratory infection Abnormal Papanicolaou smear of cervix with positive human papilloma virus (HPV) test (~2014) Anxiety (spontaneous vaginal delivery) (~2016) Depression Surgical History H/O LEEP (~2014) Family History Father Depression Alcoholic Anxiety Throat cancer Cancer Heavy smoker Family/Other OCD (obsessive compulsive disorder) Grandfather Diabetes mellitus Stroke Grandmother Non-Hodgkin lymphoma Grandfather ALS (amyotrophic lateral sclerosis) Grandmother Pneumonia Family/Other Hypertension Heart disease Social History marital status: unmarried,living together household members: children pets and animals: Yes (dogs) education level: college occupational status: employed current occupational exposures/hazards: No special mony needs: No second hand exposure: No alcohol intake: former substance use type: does not use Meds Home Medications and Allergies Home Medications ?Medication ?Instructions ?Recorded ?Confirmed ?Type sertraline 50 mg tablet 50 mg PO DAILY #90 tabs 02/20/25 03/12/25 Rx tretinoin 0.05 % topical cream 1 applic topical BEDTIME #90 grams 03/12/25 03/12/25 Rx (Retin-A) sodium,potassium,mag sulfates 17.5 See Rx Instructions PO .COMPLEX 03/17/25 Rx gram-3.13 gram-1.6 gram oral soln #354 mL (Suprep Bowel Prep Kit) Allergies Allergy/AdvReac Type Severity Reaction Status Date / Time Penicillins (PENICILLINS) Allergy Mild Rash as a Verified 03/12/25 09:21 child Exam Narrative Exam Narrative: Const General: comfortable Orientation: alert and oriented x3 Resp Effort & Inspection: normal respiratory effort and able to speak in complete sentences Cardio Rate: regular rate GI Palpation: soft (NT) Extrem General: no pedal edema and no calf tenderness Assessment & Plan Assessment and plan (1) Encounter for screening colonoscopy: Status: Acute Plan Plan screening colonoscopy, possible biopsy. The risks, benefits and options regarding the procedure were explained to the patient in detail. Risk discussion included but not limited to: bleeding, perforation, missed lesion, unable to reach cecum. The patient was encouraged to ask questions and they were answered to their satisfaction. The patient understands and is agreeable to proceed. Time-Based Coding :: [TOTAL MINUTES] spent with patient and on the chart (including review of chart, obtaining history, exam, reviewing outside data, placing orders, documenting exam and treatment plan, and counseling patient) on [DATE]. PROFEE Senior Computer Specialist Document charge(s): Yes Charge Codes Inpatient/observation care including admit and discharge same day: [id number]
[2025-04-01] MEDS: LACTATED RINGERS 1,000 ML 42 ML IV (09:54)
--- NOTE | 2025-04-01 11:14 | P.OP.COLON_ITS ---
Operative Date/Time/Diagnoses Date of procedure: 04/01/25 Time of procedure: 11:55 Pre-op diagnosis: Screening colonoscopy Post-op diagnosis: other (Adenomatous appearing 1cm sigmoid pedunculated polyp) Procedure & Clinicians Study performed: Screening colonoscopy with polypectomy Same procedure(s) as scheduled: Yes Indications: 39yo F, screening colonoscopy Surgeon: Papo Salmeron Anesthesia Type: MAC +/- Procedure Notes SCOAP/Timeout: Performed Procedure in detail: Colonoscopy Patient placed in left lateral recumbent position. Time out was performed. Proce dural sedation was administered by anesthesia. Examination began with a thorough inspection of the perianal area. There was no evidence of fissures, fistulae, external hemorrhoids or cutaneous malignancy. The colonoscope was then placed into the rectum and the lumen was insufflated with carbon dioxide. The scope was carefully advanced forward. Ultimately the cecum was intubated and confirmed by identification of the ileocecal valve, the appendiceal orifice and the confluence of the taenia. The scope was then slowly withdrawn examining the colon thoroughly in all directions. In the rectum, retroflexion of the scope was performed for inspection of the distal rectum and anal canal. ?Significant colonoscopy findings: ?1. Quality of the preparation-good, [place] 2-3, improved with irrigation/suction ?2. 1cm pedunculated adenomatous appearing sigmoid polyp at 30cm, removed with hot snare with excellent hemostasis and retrieved for pathology Scope withdrawal time: 7 minutes Findings: polyp(s) Specimen(s): other (polyp) Complications: none Impression: Sigmoid polyp, pathology pending Post-procedure Recommendations: Colonoscopy in 5 years Plan for aftercare: PACU then home Follow up: as needed Disposition: PACU
== END 2025-04-01 12:36 | disposition home or self-care (01) ==
PROVIDERS: PCP Family Medicine; Referring Provider Family Medicine; Visit Provider Surgery
PROC: 0DJD8ZZ Inspection of Lower Intestinal Tract, Via Natural or Artificial Opening Endoscopic (ICD-10-PCS; CPT 45378; principal; 2025-04-01 09:45)
DX: Z12.11 Encounter for screening for malignant neoplasm of colon (principal); D12.5 Benign neoplasm of sigmoid colon
CPT/HCPCS: 45385; J2704